=== PATIENT | male | born 1975 | race Caucasian/White ===

== ENCOUNTER 2016-05-09 12:39 | Emergency (ER) | payer OTHER ==
[~2016-05-09] VITALS: Ht 165.1 cm; Wt 77.1 kg
[~2016-05-09 12:39] MED LIST: AMOX TR-K CLV1 EAC4; CIPRODEX OTIC7.5 ML; CLARITIN10 MG PO; CLEOCIN HCL300 MG PO; CLINDAMYCIN HCL75 MG; DOXYCYCLINE 10100 MG PO; FLONASE 0.05%50 MCG NASAL; HYDROCODON-ACE1 EAC5 PO; HYDROCODONE-APA1 TA1 PO; IBUPROFEN 600600 M1 PO; LYRICA 75 MG CA75 MG PO; MOBIC7.5 MG PO; NORCO 5-325 TA1 EACH PO; PERCOCET 5-3251 EACH PO; SKELAXIN 800 M800 M1 PO; ZOFRAN ODT4 M1 PO; ZPAK PO
[2016-05-09] MEDS ORDERED: ADDERALL 30 MG30 MG PO (13:00)
[2016-05-09] MEDS ORDERED: NORCO 5-325 TA1 EACH PO (14:08)
[2016-05-09] MEDS ORDERED: BACLOFEN 10MG T10 MG PO (14:08)
[2016-05-09] MEDS ORDERED: NAPROSYN500 MG PO (14:08)
== END 2016-05-09 14:24 | disposition home or self-care (01) ==
LOC: ER 12:39
DX: M54.5 Low back pain (principal); F17.210 Nicotine dependence, cigarettes, uncomplicated